=== PATIENT | male | born 2005 | race African-American/Black ===

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

== ENCOUNTER 2024-01-16 22:52 | Emergency (ER) | payer SELFPAY ==
[2024-01-16 23:42] VITALS: BP 109/52; PULSE 119
== END 2024-01-16 23:41 | disposition home or self-care (01) ==
LOC: JD.ED 22:52
DX: G40.909 Epilepsy, unspecified, not intractable, without status epilepticus (principal); Z86.16 Personal history of COVID-19
CPT/HCPCS: 99284

== ENCOUNTER 2024-09-16 15:41 | Emergency (ER) | payer SELFPAY ==
[2024-09-16 15:56] VITALS: BP 144/96; PULSE 70
[2024-09-16 16:50] LABS: BASOPHILS PERCENT AUTO 0.4 % (0.0-1.0); EOSINOPHILS ABSOLUTE AUTO 0.1 K/mm3 (0.0-0.4); EOSINOPHILS PERCENT AUTO 1.8 % (0.0-6.0); HEMATOCRIT 49.9 % (42.0-52.0); HEMOGLOBIN 16.9 gm/dl (14.0-18.0); IMMATURE GRAN ABSOLUTE AUTO 0.01 K/mm3 (0.00-0.05); IMMATURE GRAN PERCENT AUTO 0.1 % (0.0-0.4); LYMPHOCYTES ABSOLUTE AUTO 3.1 K/mm3 (1.0-4.8); LYMPHOCYTES PERCENT AUTO 39.3 % (24.0-44.0); MEAN CORPUSCULAR HEMOGLOBIN 30.3 pg (28.0-32.0); MEAN CORPUSCULAR HGB CONC 33.9 g/dl (32.0-36.0); MEAN CORPUSCULAR VOLUME 89.4 fl (83.0-99.0); MEAN PLATELET VOLUME 10.4 fl (9.4-12.4); MONOCYTES ABSOLUTE AUTO 0.5 K/mm3 (0.0-0.8); NEUTROPHILS ABSOLUTE AUTO 4.1 K/mm3 (1.8-7.7); PLATELET COUNT,PLT 264 K/mm3 (150-400); RED BLOOD CELL COUNT 5.58 M/mm3 (4.52-5.90); WHITE BLOOD CELL COUNT,WBC 7.78 K/mm3 (3.9-11.3)
[2024-09-16 17:24] LABS: A/G RATIO 1.1 (1-2); ALBUMIN 4.6 g/dl (3.4-5.0); ANION GAP 13.9 (5-15); BILIRUBIN TOTAL 0.5 mg/dL (0.2-1.0); BUN/CREATININE RATIO 11.8 (14-18); CREATININE 1.1 mg/dL (0.7-1.3); EST CRCL DRUG DOSING (CG) 113.64 mL/min; MAGNESIUM 2.3 mg/dL (1.8-2.4); POTASSIUM,K 3.9 mEq/L (3.5-5.1); PROTEIN TOTAL,TP 8.9 g/dl (6.4-8.2)
[2024-09-16 18:14] LABS: NEUTROPHILS PERCENT AUTO 52.4 % (41.0-71.0)
[2024-09-16 18:16] LABS: SLIDE REVIEW ABNORMAL SMEAR
== END 2024-09-16 17:56 | disposition home or self-care (01) ==
LOC: JD.ED 15:41
DX: S06.0X0A Concussion without loss of consciousness, initial encounter (principal); Z86.16 Personal history of COVID-19; W00.0XXA Fall on same level due to ice and snow, initial encounter
CPT/HCPCS: 36415; 70450; 70450-26; 80053; 83735; 85025; 99285

== ENCOUNTER 2025-03-16 16:18 | Emergency (ER) | payer MEDICAID ==
[2025-03-16] MEDS: LORazepam 2 MG/ML SDV IVPUSH STA (16:37)
[2025-03-16] MEDS: levETIRAcetam 500 MG/5 ML SDV IVPUSH ONE (16:38)
[2025-03-16 16:40] LABS: BASOPHILS ABSOLUTE AUTO 0.1 K/mm3 (0.0-0.2); BASOPHILS PERCENT AUTO 0.5 % (0.0-1.0); EOSINOPHILS ABSOLUTE AUTO 0.3 K/mm3 (0.0-0.4); EOSINOPHILS PERCENT AUTO 1.5 % (0.0-6.0); IMMATURE GRAN ABSOLUTE AUTO 0.05 K/mm3 (0.00-0.05); IMMATURE GRAN PERCENT AUTO 0.3 % (0.0-0.4); LYMPHOCYTES ABSOLUTE AUTO 6.7 K/mm3 (1.0-4.8); LYMPHOCYTES PERCENT AUTO 37.7 % (24.0-44.0); MEAN PLATELET VOLUME 10.2 fl (9.4-12.4); MONOCYTES ABSOLUTE AUTO 1.7 K/mm3 (0.0-0.8); MONOCYTES PERCENT AUTO 9.8 % (0.0-8.0); NEUTROPHILS ABSOLUTE AUTO 8.9 K/mm3 (1.8-7.7); NEUTROPHILS PERCENT AUTO 50.2 % (41.0-71.0); NRBC ABSOLUTE 0.00 (0.00-0.02); NRBC PERCENT 0.0 % (0.0-0.2); PLATELET COUNT,PLT 388 K/mm3 (150-400); RED BLOOD CELL COUNT 5.36 M/mm3 (4.52-5.90); WHITE BLOOD CELL COUNT,WBC 17.73 K/mm3 (3.9-11.3)
[2025-03-16 17:00] LABS: BILIRUBIN TOTAL 0.5 mg/dL (0.2-1.0); CREATINE KINASE,CK 212.0 U/L (39-308); CREATININE 2.0 mg/dL (0.7-1.3); EST CRCL DRUG DOSING (CG) 70.42 mL/min; ESTIMATED GFR 48.0 mL/min (>60); POTASSIUM,K 3.6 mEq/L (3.5-5.1); SODIUM,NA 142.0 mEq/L (136-145)
[2025-03-16 17:15] LABS: A/G RATIO 1.2 (1-2); BLOOD UREA NITROGEN,BUN 12.0 mg/dL (7-18); CHLORIDE,CL 99.0 mEq/L (98-107); GLUCOSE RANDOM 131.0 mg/dL (70-99); PROTEIN TOTAL,TP 8.9 g/dl (6.4-8.2)
[2025-03-16 17:35] LABS: ETHANOL BLOOD MEDICAL 0.0 gm% (0.00)
[2025-03-16 17:36] LABS: CARBON DIOXIDE,CO2 14.0 mEq/L (21-32)
[2025-03-16 18:27] LABS: ALANINE AMINOTRANSFERASE,ALT 17.0 U/L (16-63); ASPARTATE AMNIOTRANSFERASE,AST 15.0 U/L (15-37)
[2025-03-16 18:41] LABS: BUPRENORPHINE SCREEN,URINE NEGATIVE (CUTOFF=10); METHADONE SCREEN, URINE NEGATIVE (CUT0FF=200); METHAMPHETAMINES SCREEN, URINE PRESUMPTIVE POSITIVE (CUTOFF=500); OXYCODONE SCREEN,URINE NEGATIVE (CUT0FF=100); THC SCREEN,URINE 20 NG/ML PRESUMPTIVE POSITIVE (CUTOFF=50)
[2025-03-16 18:47] LABS: AMPHETAMINES SCREEN, URINE PRESUMPTIVE POSITIVE (CUTOFF=500)
[2025-03-16 19:26] VITALS: BP 122/80; PULSE 87
== END 2025-03-16 19:20 | disposition home or self-care (01) ==
LOC: JD.ED 16:18
DX: G40.909 Epilepsy, unspecified, not intractable, without status epilepticus (principal); F19.10 Other psychoactive substance abuse, uncomplicated; Z91.148 Patient's other noncompliance with medication regimen for other reason; Z79.899 Other long term (current) drug therapy
CPT/HCPCS: 36415; 80053; 80306; 80307; 82550; 83735; 85025; 96374; 96375; 99284; J1953; J2060; J7030; 99283

== ENCOUNTER 2025-04-02 19:30 | Emergency (ER) | payer MEDICAID ==
[2025-04-02 19:38] VITALS: PULSE 119
[2025-04-02 19:44] VITALS: BP 90/52
[2025-04-02 20:12] LABS: BASOPHILS ABSOLUTE AUTO 0.1 K/mm3 (0.0-0.2); BASOPHILS PERCENT AUTO 0.4 % (0.0-1.0); EOSINOPHILS ABSOLUTE AUTO 0.3 K/mm3 (0.0-0.4); EOSINOPHILS PERCENT AUTO 2.3 % (0.0-6.0); IMMATURE GRAN ABSOLUTE AUTO 0.13 K/mm3 (0.00-0.05); IMMATURE GRAN PERCENT AUTO 1.1 % (0.0-0.4); LYMPHOCYTES ABSOLUTE AUTO 4.2 K/mm3 (1.0-4.8); LYMPHOCYTES PERCENT AUTO 35.2 % (24.0-44.0); MEAN PLATELET VOLUME 10.7 fl (9.4-12.4); MONOCYTES ABSOLUTE AUTO 1.1 K/mm3 (0.0-0.8); MONOCYTES PERCENT AUTO 8.9 % (0.0-8.0); NEUTROPHILS ABSOLUTE AUTO 6.2 K/mm3 (1.8-7.7); NEUTROPHILS PERCENT AUTO 52.1 % (41.0-71.0); NRBC ABSOLUTE 0.00 (0.00-0.02); NRBC PERCENT 0.0 % (0.0-0.2); PLATELET COUNT,PLT 312 K/mm3 (150-400); RED BLOOD CELL COUNT 5.27 M/mm3 (4.52-5.90); WHITE BLOOD CELL COUNT,WBC 11.97 K/mm3 (3.9-11.3)
[2025-04-02 20:25] LABS: A/G RATIO 1.1 (1-2); ALANINE AMINOTRANSFERASE,ALT 71.0 U/L (16-63); ASPARTATE AMNIOTRANSFERASE,AST 43.0 U/L (15-37); BILIRUBIN TOTAL 0.2 mg/dL (0.2-1.0); BLOOD UREA NITROGEN,BUN 13.0 mg/dL (7-18); CARBON DIOXIDE,CO2 17.0 mEq/L (21-32); CHLORIDE,CL 99.0 mEq/L (98-107); CREATININE 1.6 mg/dL (0.7-1.3); EST CRCL DRUG DOSING (CG) 90.42 mL/min; ESTIMATED GFR 63.0 mL/min (>60); GLUCOSE RANDOM 120.0 mg/dL (70-99); POTASSIUM,K 3.6 mEq/L (3.5-5.1); PROTEIN TOTAL,TP 7.8 g/dl (6.4-8.2); SODIUM,NA 139.0 mEq/L (136-145)
[2025-04-02 21:19] LABS: APPEARANCE,URINE CLEAR (Clear); GLUCOSE,URINE NEGATIVE (Negative); OCCULT BLOOD,URINE NEGATIVE (Negative)
[2025-04-02 21:23] LABS: EPITHELIAL CELLS,URINE 0-5 /hpf (0-5)
== END 2025-04-03 00:09 | disposition home or self-care (01) ==
LOC: JD.ED 19:30
DX: G40.909 Epilepsy, unspecified, not intractable, without status epilepticus (principal); F17.210 Nicotine dependence, cigarettes, uncomplicated; Z79.899 Other long term (current) drug therapy
CPT/HCPCS: 36415; 70450; 80053; 81001; 85025; 96365; 99285; J1953

== ENCOUNTER 2025-04-08 18:41 | Emergency (ER) | payer MEDICAID | END 2025-04-08 19:42 | disposition left against medical advice (07) | LOC: JD.ED 18:41 | DX: Z53.21 Procedure and treatment not carried out due to patient leaving prior to being seen by health care provider (principal) ==

== ENCOUNTER 2025-04-18 06:22 | Emergency (ER) | payer MEDICAID ==
[2025-04-18] MEDS ORDERED: levETIRAcetam 500 MG/5 ML SDV IV ONE (06:46)
[2025-04-18 06:51] LABS: BASOPHILS ABSOLUTE AUTO 0.0 K/mm3 (0.0-0.2); BASOPHILS PERCENT AUTO 0.3 % (0.0-1.0); EOSINOPHILS ABSOLUTE AUTO 0.0 K/mm3 (0.0-0.4); EOSINOPHILS PERCENT AUTO 0.2 % (0.0-6.0); IMMATURE GRAN ABSOLUTE AUTO 0.08 K/mm3 (0.00-0.05); IMMATURE GRAN PERCENT AUTO 0.6 % (0.0-0.4); LYMPHOCYTES ABSOLUTE AUTO 2.7 K/mm3 (1.0-4.8); LYMPHOCYTES PERCENT AUTO 20.1 % (24.0-44.0); MEAN PLATELET VOLUME 10.1 fl (9.4-12.4); MONOCYTES ABSOLUTE AUTO 0.9 K/mm3 (0.0-0.8); MONOCYTES PERCENT AUTO 6.9 % (0.0-8.0); NEUTROPHILS ABSOLUTE AUTO 9.5 K/mm3 (1.8-7.7); NEUTROPHILS PERCENT AUTO 71.9 % (41.0-71.0); NRBC ABSOLUTE 0.00 (0.00-0.02); NRBC PERCENT 0.0 % (0.0-0.2); PLATELET COUNT,PLT 338 K/mm3 (150-400); RED BLOOD CELL COUNT 5.27 M/mm3 (4.52-5.90); WHITE BLOOD CELL COUNT,WBC 13.26 K/mm3 (3.9-11.3)
[2025-04-18 07:05] LABS: A/G RATIO 1.1 (1-2); ALANINE AMINOTRANSFERASE,ALT 30 U/L (16-63); ASPARTATE AMNIOTRANSFERASE,AST 14 U/L (15-37); BILIRUBIN TOTAL 0.3 mg/dL (0.2-1.0); BLOOD UREA NITROGEN,BUN 13 mg/dL (7-18); CARBON DIOXIDE,CO2 19 mEq/L (21-32); CHLORIDE,CL 95 mEq/L (98-107); CREATININE 1.4 mg/dL (0.7-1.3); ESTIMATED GFR 73 mL/min (>60); GLUCOSE RANDOM 161 mg/dL (70-99); POTASSIUM,K 4.4 mEq/L (3.5-5.1); PROTEIN TOTAL,TP 8.3 g/dl (6.4-8.2); SODIUM,NA 137 mEq/L (136-145)
[2025-04-18] MEDS: levETIRAcetam 500 MG/5 ML SDV IVPUSH ONE (07:10)
[2025-04-18] MEDS: Sodium Chloride 0.9% 10 ML Syringe FLUSH PRN (07:11)
[2025-04-18 09:05] VITALS: BP 144/87; PULSE 110
[2025-04-21 04:47] LABS: KEPPRA <2.0 ug/mL (10.0-40.0)
== END 2025-04-18 08:00 | disposition home or self-care (01) ==
LOC: JD.ED 06:22
DX: R56.9 Unspecified convulsions (principal); F19.10 Other psychoactive substance abuse, uncomplicated; Z91.148 Patient's other noncompliance with medication regimen for other reason
CPT/HCPCS: 36415; 71045; 80053; 80177; 83735; 85025; 93005; 96361; 96374; 99285; J1953; J7030; 93010; 99284

== ENCOUNTER 2025-05-23 01:42 | Emergency (ER) | payer MEDICAID ==
[2025-05-23] MEDS ORDERED: Sodium Chloride 0.9% 10 ML Syringe FLUSH PRN (01:56)
[2025-05-23 02:22] LABS: PCO2 VENOUS 46.0 mmHg (41-51); PH,VENOUS 7.28 (7.30-7.40)
[2025-05-23 02:23] LABS: BASE EXCESS VENOUS -5.3 (-4.0-2.0); BICARBONATE,VENOUS 21.6 meq/L (22-26); O2 SATURATION VENOUS 98.5; PO2 VENOUS 89.0 mmHG (40-80)
[2025-05-23 02:25] LABS: BASOPHILS ABSOLUTE AUTO 0.0 K/mm3 (0.0-0.2); BASOPHILS PERCENT AUTO 0.3 % (0.0-1.0); EOSINOPHILS ABSOLUTE AUTO 0.1 K/mm3 (0.0-0.4); EOSINOPHILS PERCENT AUTO 1.5 % (0.0-6.0); IMMATURE GRAN ABSOLUTE AUTO 0.04 K/mm3 (0.00-0.05); IMMATURE GRAN PERCENT AUTO 0.4 % (0.0-0.4); LYMPHOCYTES ABSOLUTE AUTO 2.7 K/mm3 (1.0-4.8); LYMPHOCYTES PERCENT AUTO 29.4 % (24.0-44.0); MEAN PLATELET VOLUME 10.3 fl (9.4-12.4); MONOCYTES ABSOLUTE AUTO 0.9 K/mm3 (0.0-0.8); MONOCYTES PERCENT AUTO 9.6 % (0.0-8.0); NEUTROPHILS ABSOLUTE AUTO 5.4 K/mm3 (1.8-7.7); NEUTROPHILS PERCENT AUTO 58.8 % (41.0-71.0); NRBC ABSOLUTE 0.00 (0.00-0.02); NRBC PERCENT 0.0 % (0.0-0.2); PLATELET COUNT,PLT 254 K/mm3 (150-400); RED BLOOD CELL COUNT 4.66 M/mm3 (4.52-5.90); WHITE BLOOD CELL COUNT,WBC 9.24 K/mm3 (3.9-11.3)
[2025-05-23 02:56] LABS: A/G RATIO 1.1 (1-2); ALANINE AMINOTRANSFERASE,ALT 26.0 U/L (16-63); ASPARTATE AMNIOTRANSFERASE,AST 15.0 U/L (15-37); BILIRUBIN TOTAL 0.1 mg/dL (0.2-1.0); BLOOD UREA NITROGEN,BUN 16.0 mg/dL (7-18); CARBON DIOXIDE,CO2 26.0 mEq/L (21-32); CHLORIDE,CL 106.0 mEq/L (98-107); CREATININE 1.1 mg/dL (0.7-1.3); EST CRCL DRUG DOSING (CG) 126.96 mL/min; ESTIMATED GFR 98.0 mL/min (>60); GLUCOSE RANDOM 105.0 mg/dL (70-99); PHOSPHORUS 2.5 mg/dL (2.6-4.7); POTASSIUM,K 4.2 mEq/L (3.5-5.1); PROTEIN TOTAL,TP 7.2 g/dl (6.4-8.2); SODIUM,NA 141.0 mEq/L (136-145); TSH 2.926 uIU/mL (0.358-3.74)
[2025-05-23 03:00] LABS: LACTIC ACID 4.5 mmol/L (0.4-2.0)
[2025-05-23 03:01] LABS: ETHANOL BLOOD MEDICAL 0.0 gm% (0.00)
[2025-05-23] MEDS: LORazepam 2 MG/ML SDV IVPUSH ONE (04:38)
[2025-05-23] MEDS: levETIRAcetam 500 MG/5 ML SDV IV ONE (04:38)
[2025-05-23 05:00] VITALS: BP 121/78; PULSE 91
[2025-05-25 04:42] LABS: KEPPRA <2.0 ug/mL (10.0-40.0)
== END 2025-05-23 04:55 | disposition home or self-care (01) ==
LOC: JD.ED 01:42
DX: G40.909 Epilepsy, unspecified, not intractable, without status epilepticus (principal); Z79.899 Other long term (current) drug therapy
CPT/HCPCS: 36415; 80053; 80177; 80307; 82803; 82947; 83605; 83735; 84100; 84443; 85025; 96374; 96375; 99284; J1953; J2060; J7030